=== PATIENT | female | born 1935 | race Caucasian/White ===

== ENCOUNTER 2017-09-18 05:45 | Emergency (ER) | payer MEDICARE ==
[~2017-09-18] VITALS: Ht 165.1 cm; Wt 55.0 kg
[2017-09-18 05:47] VITALS: BP 140/65; PULSE 89; RESP 18; TEMP 98.2; O2SAT 94
[2017-09-18] MEDS ORDERED: LOSA100T PO (06:38)
[2017-09-18] MEDS ORDERED: CEPH-460 PO (06:38)
[2017-09-18] MEDS ORDERED: AMLO5TAB2 PO (06:38)
[2017-09-18] MEDS ORDERED: MELA5 PO (06:38)
[2017-09-18] MEDS ORDERED: DONE10TA7 PO (06:38)
[2017-09-18] MEDS ORDERED: ATOR40TA16 PO (06:38)
[2017-09-18] MEDS ORDERED: BENA25CA4 (06:38)
[2017-09-18] MEDS ORDERED: ASPI81CH6 PO (06:38)
[2017-09-18] MEDS ORDERED: MULTTAB67 PO (06:38)
--- NOTE | 2017-09-18 06:39 | RADRPT ---
EXAM DATE/TIME: 09/18/2017 06:17 [facility] COMPARISON: No previous studies available for comparison. INDICATIONS : Left hip pain, dislocated and reduced one week ago. MEDICAL HISTORY : None. SURGICAL HISTORY : Left hip arthroplasty ENCOUNTER: Initial ACUITY: 1 day PAIN SCORE: 10/10 LOCATION: Left Hip FINDINGS: There is dislocation of the left femur with respect to the acetabulum, ossific densities adjacent to the trochanters are noted and may be nonacute however acute fracture difficult to exclude. CONCLUSION: Dislocated hip. Rashel Oliver MD on September 18, 2017 at 6:37 Board Certified Radiologist. This report was verified electronically.
--- NOTE | 2017-09-18 06:52 | PD ---
HPI Chief Complaint: Musculoskeletal Complaint Time Seen by Provider: 05:51 Travel History International Travel<30 days: No Contact w/Intl Traveler<30days: No Traveled to known affect area: No History of Present Illness HPI Patient is an 82-year-old female who was lying in bed turned over and felt something pop and severe pain in her left lower back. He week ago she had surgery to have a prosthetic hip placed she comes in with her leg extended unable to move it. She has no significant past medical history outside of the hip that she's had surgically repaired a week ago she sent over for x-ray and she been given 10 of morphine en route by the paramedics has not seen another doctor for this injury and the morphine help reduce the pain PFSH Past Medical History Hypertension: Yes Tetanus Vaccination: Unknown Influenza Vaccination: Yes ?: Not Social History Alcohol Use: Yes (occasional ) Tobacco Use: No Substance Use: No Allergies-Medications (Allergen,Severity, Reaction): Coded Allergies: No Known Allergies (Verified Allergy, Unknown, 09/18/17) Reported Meds & Prescriptions Reported Meds & Active Scripts Active Reported Keflex (Cephalexin) 500 Mg Cap 500 Mg PO Q8H Atorvastatin (Atorvastatin Calcium) 40 Mg Tab 40 Mg PO HS Melatonin 5 Mg Tab 5 Mg PO HS Benadryl Allergy (Diphenhydramine HCl) 25 Mg Cap Multiple Vitamin 1 Tab 1 Tab PO DAILY Donepezil 10 Mg Tab 10 Mg PO HS Amlodipine (Amlodipine Besylate) 5 Mg Tab 5 Mg PO DAILY Losartan (Losartan Potassium) 100 Mg Tab 100 Mg PO DAILY Aspirin Low Dose (Aspirin) 81 Mg Chew 81 Mg PO DAILY Review of Systems Except as stated in HPI: all other systems reviewed are Neg Musculoskeletal: Positive: Myalgias, Arthralgias (left lower hip and lower back pain started just prior to arrival) Physical Exam Narrative GENERAL: pt laying still in stretcher left leg longer than right SKIN: Warm and dry. HEAD: Atraumatic. Normocephalic. EYES: Pupils equal and round. No scleral icterus. No injection or drainage. ENT: No nasal bleeding or discharge. Mucous membranes pink and moist. NECK: Trachea midline. No JVD. CARDIOVASCULAR: Regular rate and rhythm. RESPIRATORY: No accessory muscle use. Clear to auscultation. Breath sounds equal bilaterally. GASTROINTESTINAL: Abdomen soft, non-tender, nondistended. Hepatic and splenic margins not palpable. MUSCULOSKELETAL: Extremities Left hip area and femur area tender to touch NEUROLOGICAL: Awake no obvious focal deficits Data Data Last Documented VS Vital Signs Date Time Temp Pulse Resp B/P (MAP) Pulse Ox O2 Delivery O2 Flow Rate FiO2 09/18/17 18:09 09/18/17 10:19 100 18 100 Nasal Cannula 2.00 Orders Orders Hip, Uni(Ap&Lat) W Ap Pelvis (09/18/17 ) Fentanyl Inj (Fentanyl Inj) (09/18/17 06:45) Urinary Catheter Management GARY.Q8H (09/18/17 06:39) Complete Blood Count With Diff (09/18/17 06:39) Comprehensive Metabolic Panel (09/18/17 06:39) Prothrombin Time / Inr (Pt) (09/18/17 06:39) Urinalysis - C+S If Indicated (09/18/17 06:39) Propofol 200 Mg/20 Ml Inj (Diprivan 200 (09/18/17 07:45) Ketamine Inj (Ketalar Inj) (09/18/17 09:07) Hip, Ap Only W Ap Pelvis (09/18/17 ) Ketamine Inj (Ketalar Inj) (09/18/17 11:15) (Hub Use Only)Inp Phy Cons/Ref (09/18/17 ) Immobilizer Knee 20 Inch (09/18/17 ) Ed Discharge Order (09/18/17 15:04) Labs Laboratory Tests Test 09/18/17 06:45 White Blood Count 7.4 TH/MM3 Red Blood Count 3.45 MIL/MM3 Hemoglobin 10.7 GM/DL Hematocrit 31.6 % Mean Corpuscular Volume 91.7 FL Mean Corpuscular Hemoglobin 30.9 PG Mean Corpuscular Hemoglobin Concent 33.8 % Red Cell Distribution Width 13.4 % Platelet Count 354 TH/MM3 Mean Platelet Volume 7.7 FL Neutrophils (%) (Auto) 60.5 % Lymphocytes (%) (Auto) 28.7 % Monocytes (%) (Auto) 8.2 % Eosinophils (%) (Auto) 1.5 % Basophils (%) (Auto) 1.1 % Neutrophils # (Auto) 4.5 TH/MM3 Lymphocytes # (Auto) 2.1 TH/MM3 Monocytes # (Auto) 0.6 TH/MM3 Eosinophils # (Auto) 0.1 TH/MM3 Basophils # (Auto) 0.1 TH/MM3 CBC Comment DIFF FINAL Differential Comment Prothrombin Time 10.8 SEC Prothromb Time International Ratio 1.1 RATIO Urine Color LIGHT-YELLOW Urine Turbidity CLEAR Urine pH 7.5 Urine Specific [place] 1.005 Urine Protein NEG mg/dL Urine Glucose (UA) NEG mg/dL Urine Ketones NEG mg/dL Urine Occult Blood NEG Urine Nitrite NEG Urine Bilirubin NEG Urine Urobilinogen LESS THAN 2.0 MG/DL Urine Leukocyte Esterase NEG Urine Bacteria RARE /hpf Microscopic Urinalysis Comment CULT NOT INDICATED Blood Urea Nitrogen 7 MG/DL Creatinine 0.50 MG/DL Random Glucose 117 MG/DL Total Protein 6.6 GM/DL Albumin 3.3 GM/DL Calcium Level 8.6 MG/DL Alkaline Phosphatase 67 U/L Aspartate Amino Transf (AST/SGOT) 18 U/L Alanine Aminotransferase (ALT/SGPT) 17 U/L Total Bilirubin 0.7 MG/DL Sodium Level 132 MEQ/L Potassium Level 4.1 MEQ/L Chloride Level 99 MEQ/L Carbon Dioxide Level 25.7 MEQ/L Anion Gap 7 MEQ/L Estimat Glomerular Filtration Rate 118 ML/MIN [facility] Medical Decision Making Medical Screen Exam Complete: Yes Emergency Medical Condition: Yes Differential Diagnosis pt has recent hip replacement and now sudden severe pain to left hip area after turning in her sleep in bed ,, like displacement of prosthetic or dislodgement of prosthetic from femur or from acetabelum.. Narrative Course Xray shows dislocation of both cup and ball joint of implantation of prosthetic from the acetabulum --> the ball and cup joint remain together however entire apparatus slipped out of implantation spot on left pelvis acetabulum . I will need to consult ortho to discuss whether admit for internal reduction indicated. Fredi Finnegan MD Sep 18, 2017 06:52
[2017-09-18 07:21] LABS: INTERNATIONAL NORMALIZED RATIO 1.1 RATIO; PROTHROMBIN TIME - PATIENT 10.8 SEC (9.8-11.6)
[2017-09-18 07:22] LABS: AUTOMATED NEUTROPHIL # 4.5 TH/MM3 (1.8-7.7); BASOPHIL # 0.1 TH/MM3 (0-0.2); BASOPHIL % 1.1 % (0.0-2.0); EOSINOPHIL # 0.1 TH/MM3 (0-0.4); EOSINOPHIL % 1.5 % (0.0-4.0); HEMATOCRIT 31.6 % (35.0-46.0); HEMOGLOBIN 10.7 GM/DL (11.6-15.3); LYMPH % 28.7 % (9.0-44.0); LYMPHOCYTE # 2.1 TH/MM3 (1.0-4.8); MEAN CELL VOLUME 91.7 FL (80.0-100.0); MEAN CORPUSCULAR HEMOGLOBIN 30.9 PG (27.0-34.0); MEAN CORPUSCULAR HGB CONC 33.8 % (32.0-36.0); MEAN PLATELET VOLUME 7.7 FL (7.0-11.0); MONO % 8.2 % (0.0-8.0); MONOCYTE # 0.6 TH/MM3 (0-0.9); NEUT % 60.5 % (16.0-70.0); PLATELET COUNT 354 TH/MM3 (150-450); RED BLOOD COUNT 3.45 MIL/MM3 (4.00-5.30); RED CELL DISTRIBUTION WIDTH 13.4 % (11.6-17.2); WHITE BLOOD COUNT 7.4 TH/MM3 (4.0-11.0)
[2017-09-18 07:24] LABS: BACTERIA, URINE RARE /hpf; BILIRUBIN, URINE NEG (NEG); BLOOD, URINE NEG (NEG); GLUCOSE,URINE NEG (NEG); KETONE, URINE NEG (NEG); NITRITE,URINE NEG (NEG); PH, URINE 7.5 (5.0-8.5); URINE COLOR LIGHT-YELLOW (YELLW/STRAW); URINE LEUKOCYTE ESTERASE NEG (NEG)
[2017-09-18 07:39] LABS: ALBUMIN 3.3 GM/DL (3.4-5.0); ALT (GPT) 17 U/L (10-53); AST (GOT) 18 U/L (15-37); BICARBONATE 25.7 MEQ/L (21.0-32.0); BLOOD UREA NITROGEN 7 MG/DL (7-18); CALCIUM 8.6 MG/DL (8.5-10.1); CHLORIDE 99 MEQ/L (98-107); GLOMERULAR FILTRATION RATE 118 ML/MIN (>89); GLUCOSE,RANDOM 117 MG/DL (74-106); SODIUM (NA) 132 MEQ/L (136-145)
[2017-09-18 07:40] LABS: ALKALINE PHOSPHATASE 67 U/L (45-117); TOTAL BILIRUBIN ADULT 0.7 MG/DL (0.2-1.0); TOTAL PROTEIN 6.6 GM/DL (6.4-8.2)
[2017-09-18] MEDS ORDERED: PROPOFOL 200 MG/20 ML AMP IV ONE (07:45)
[2017-09-18 08:22] VITALS: BP 122/58; PULSE 82; RESP 16; O2SAT 97
[2017-09-18 09:00] VITALS: O2SAT 99
--- NOTE | 2017-09-18 09:04 | PD ---
Data Data Last Documented VS Vital Signs Date Time Temp Pulse Resp B/P (MAP) Pulse Ox O2 Delivery O2 Flow Rate FiO2 09/18/17 09:31 99 Nasal Cannula 2.00 09/18/17 08:22 82 16 122/58 (79) 09/18/17 05:47 98.2 Orders Orders Hip, Uni(Ap&Lat) W Ap Pelvis (09/18/17 ) Fentanyl Inj (Fentanyl Inj) (09/18/17 06:45) Urinary Catheter Management GARY.Q8H (09/18/17 06:39) Complete Blood Count With Diff (09/18/17 06:39) Comprehensive Metabolic Panel (09/18/17 06:39) Prothrombin Time / Inr (Pt) (09/18/17 06:39) Urinalysis - C+S If Indicated (09/18/17 06:39) Propofol 200 Mg/20 Ml Inj (Diprivan 200 (09/18/17 07:45) Ketamine Inj (Ketalar Inj) (09/18/17 09:07) Hip, Ap Only W Ap Pelvis (09/18/17 ) Labs Laboratory Tests Test 09/18/17 06:45 White Blood Count 7.4 TH/MM3 Red Blood Count 3.45 MIL/MM3 Hemoglobin 10.7 GM/DL Hematocrit 31.6 % Mean Corpuscular Volume 91.7 FL Mean Corpuscular Hemoglobin 30.9 PG Mean Corpuscular Hemoglobin Concent 33.8 % Red Cell Distribution Width 13.4 % Platelet Count 354 TH/MM3 Mean Platelet Volume 7.7 FL Neutrophils (%) (Auto) 60.5 % Lymphocytes (%) (Auto) 28.7 % Monocytes (%) (Auto) 8.2 % Eosinophils (%) (Auto) 1.5 % Basophils (%) (Auto) 1.1 % Neutrophils # (Auto) 4.5 TH/MM3 Lymphocytes # (Auto) 2.1 TH/MM3 Monocytes # (Auto) 0.6 TH/MM3 Eosinophils # (Auto) 0.1 TH/MM3 Basophils # (Auto) 0.1 TH/MM3 CBC Comment DIFF FINAL Differential Comment Prothrombin Time 10.8 SEC Prothromb Time International Ratio 1.1 RATIO Urine Color LIGHT-YELLOW Urine Turbidity CLEAR Urine pH 7.5 Urine Specific [place] 1.005 Urine Protein NEG mg/dL Urine Glucose (UA) NEG mg/dL Urine Ketones NEG mg/dL Urine Occult Blood NEG Urine Nitrite NEG Urine Bilirubin NEG Urine Urobilinogen LESS THAN 2.0 MG/DL Urine Leukocyte Esterase NEG Urine Bacteria RARE /hpf Microscopic Urinalysis Comment CULT NOT INDICATED Blood Urea Nitrogen 7 MG/DL Creatinine 0.50 MG/DL Random Glucose 117 MG/DL Total Protein 6.6 GM/DL Albumin 3.3 GM/DL Calcium Level 8.6 MG/DL Alkaline Phosphatase 67 U/L Aspartate Amino Transf (AST/SGOT) 18 U/L Alanine Aminotransferase (ALT/SGPT) 17 U/L Total Bilirubin 0.7 MG/DL Sodium Level 132 MEQ/L Potassium Level 4.1 MEQ/L Chloride Level 99 MEQ/L Carbon Dioxide Level 25.7 MEQ/L Anion Gap 7 MEQ/L Estimat Glomerular Filtration Rate 118 ML/MIN MDM Medical Record Reviewed: Yes Supervised Visit with CARLA: No Narrative Course Please refer to the outgoing provider's note. The patient woke up in bed this morning rollover dislocated the left hip. She has a history of hip replacement. This case was discussed with the patient's orthopedic surgeon in detail and. Details of the plain film were reviewed and the plan to reduce at bedside was agreed upon and coordination with the patient' s orthopedic surgeon Dr. Bee. Last 24 hours Impressions Hip and Pelvis X-Ray 09/18/17 0000 Signed Impressions: Service Date/Time: September 09:36 - CONCLUSION: Successful reduction of the dislocated implant on the left. Leif Josue Jr., MD Hip and Pelvis X-Ray 09/18/17 0000 Signed Impressions: Service Date/Time: September 06:17 - CONCLUSION: Dislocated hip. Rashel Oliver MD CBC & BMP Diagram 09/18/17 06:45 Total Protein 6.6, Albumin 3.3 L, Calcium Level 8.6, Alkaline Phosphatase 67, Aspartate Amino Transf (AST/SGOT) 18, Alanine Aminotransferase (ALT/SGPT) 17, Total Bilirubin 0.7 Although the patient is elderly and has a significant disability with dislocation of the hip the daughter's concern that staying at home being an unsafe environment is not an indication for admission. We can certainly provide assistance with placing the patient in bed at home however and admission to the hospitalist inappropriate and this was verbalized to the daughter and by me at the bedside. Placement in a rehabilitation facility may be coordinated vis--vis the primary care provider on an outpatient basis however hip dislocation with successful reduction is not an indication for admission to the hospital. Procedures Procedure Narrative After the risks and benefits were discussed the following procedure was performed: MODERATE SEDATION: The patient was placed on a phototypesetting equipment monitor and pulse oximetry. An ambu bag and suction was immediately available at bedside. The patient was monitored by the nurse. Oxygen saturation , heart rate and blood pressure were monitored. Procedural sedation was acheived using Propofol . The patient was observed until awake and alert. Procedural Sedation time in attendance was 15 minutes. Diagnosis Primary Impression: Hip dislocation, left Qualified Codes: S73.005D - Unspecified dislocation of left hip, subsequent encounter Referrals: Orthopedist Primary Care Physician Med/Other Pt SpecificInfo: No Change to Meds Disposition: 01 DISCHARGE HOME Condition: Stable Ky Hughes MD Sep 18, 2017 09:04
[2017-09-18] MEDS ORDERED: KETAMINE HCL 500 MG/10 ML VIAL ONE (09:07)
[2017-09-18 09:31] VITALS: O2SAT 99
--- NOTE | 2017-09-18 09:56 | RADRPT ---
EXAM DATE/TIME: 09/18/2017 09:36 [facility] COMPARISON: HIP LEFT (AP&LAT 2/3VWS) W AP PELVIS, September 18, 2017, 6:17. INDICATIONS : Post reduction, left hip. MEDICAL HISTORY : None. SURGICAL HISTORY : Left total hip replacement. ENCOUNTER: Initial ACUITY: 1 day PAIN SCORE: 7/10 LOCATION: Left hip FINDINGS: Frontal view of the pelvis and left hip show successful reduction of the previously seen dislocation. The dislocated acetabular component of the prosthesis from the eagle acetabulum has been reduced. T he femoral head of the implant is associated with the acetabular component. No dislocation observed o n the current study. No acute fracture. Soft tissues are unremarkable. CONCLUSION: Successful reduction of the dislocated implant on the left. Leif Josue Jr., MD on September 18, 2017 at 9:52 Board Certified Radiologist. This report was verified electronically.
[2017-09-18 10:19] VITALS: BP 123/60; PULSE 100; RESP 18; O2SAT 100
--- NOTE | 2017-09-18 11:08 | HHI.FF ---
Face to Face Verification Diagnosis: (1) Hip dislocation, left Home Health Aide Order: To Assist In: Bathing and personal care, search engine optimization manager and meal prep I have seen patient Joann Coulter on 09/18/17. My clinical findings support the need for the requested home health care services because: Ltd mobility - disease progression Deconditioned w/ increased weakness Limited ability to care for self High risk of falls I certify that my clinical findings support that this patient is homebound because: Unsteady gait/balance Unsafe to leave home unassisted [id number] bed/chair Unable to use public transportation Ky Hughes MD Sep 18, 2017 11:08
[2017-09-18] MEDS ORDERED: KETAMINE HCL 500 MG/5 ML VIAL IV PUSH ONE (11:15)
== END 2017-09-18 18:11 | disposition home or self-care (01) ==
LOC: NEPE 05:45 → NEPI 18:11
DX: S73.005D Unspecified dislocation of left hip, subsequent encounter (principal); I10 Essential (primary) hypertension; M54.5 Low back pain; X50.1XXA Overexertion from prolonged static or awkward postures, initial encounter; Y92.003 Bedroom of unspecified non-institutional (private) residence as the place of occurrence of the external cause
CPT/HCPCS: 27265; 73501; 73502; 80053; 81001; 85025; 85610; 96374; 99152; 99284; J3010; L1830